=== PATIENT | male | born 1930 | race Caucasian/White ===

== ENCOUNTER 2016-11-19 07:36 | Day surgery (SDC) | payer MEDICARE ==
[2016-11-18 17:53] LABS: HEMATOCRIT 40.2 % (40.0-51.0); HEMOGLOBIN 13.8 g/dL (13.6-17.8)
[2016-11-18 18:04] LABS: BUN (BLOOD UREA NITROGEN) 18 MG/DL (6-23); CALCIUM, SERUM 8.8 MG/DL (8.5-10.4); CHLORIDE, SERUM 106 MMOL/L (96-112); CREATININE 1.49 MG/DL (0.70-1.30); GFR AFRICAN AMERICAN 49 ML/MIN (>=60); GFR NON AFRICAN AMERICAN 42 ML/MIN (>=60); POTASSIUM, SERUM 3.8 MMOL/L (3.5-5.3); SODIUM, SERUM 141 MMOL/L (135-148)
[2016-11-18 18:05] LABS: CO2 (CARBON DIOXIDE) 24 MMOL/L (24-34); GLUCOSE, SERUM 211 MG/DL (60-99)
--- NOTE | ~2016-11-19 | OP ---
Record Of Operation [facility] [address] [place]. [address] NAME: ELENO RAMIREZ RELL : 32 STATUS : [facility]#: [id number] AGE: 86 ADM/REG DATE : 11/19/16 MR#: [id number] REPORT SERV DATE: 11/27/16 DICTATED BY: Rl CHAN DATE: 11/27/16 REPORT STATUS : Draft TRANSCRIBED BY: GEN DATE: 11/27/16 DATE OF PROCEDURE: 11/19/2016 PREOPERATIVE DIAGNOSES: 1. Basal cell carcinoma of the left lower nasal sidewall. 2. Defect of the left lower nasal sidewall secondary to Mohs micrographic surgical excision of basal cell carcinoma. 3. Lesion of the left upper nasal sidewall, uncertain behavior, rule out atypia. 4. Lesion of the left mid nasal sidewall, uncertain behavior, rule out atypia. POSTOPERATIVE DIAGNOSES: 1. Basal cell carcinoma of the left lower nasal sidewall. 2. Defect of the left lower nasal sidewall secondary to Mohs micrographic surgical excision of basal cell carcinoma. 3. Lesion, left upper nasal sidewall, seborrheic keratosis by frozen section. 4. Lesion, left mid nasal sidewall, actinic keratosis, by frozen section. PROCEDURE: 1. Surgical excisional preparation of left lower nasal sidewall defect. 2. Reconstruction of left lower nasal sidewall defect with laterally based nasalis muscle myocutaneous banner-type transposition flap and fat-muscle pedicled turndown flap. 3. Shave excisional biopsy of the left upper nasal sidewall lesion with frozen section. 4. Shave excisional biopsy of the left mid nasal sidewall lesion with frozen section. 5. Rotation flap closure of nasal myocutaneous flap donor site (3 cm x 3 cm). FINDINGS: Left upper nasal sidewall crusted lesion, measuring 5 mm (seborrheic keratosis by frozen section); left mid nasal sidewall lesion measured 6 mm x 4 mm, crusted (frozen section showed actinic keratosis); the Mohs defect of the left lower nasal sidewall measured 1.7 cm x 1.7 cm with a portion of the defect touching the alar crease laterally. INDICATIONS: This 86-year-old gentleman had a biopsy-proven basal cell carcinoma removed by Mohs micrographic surgical technique. This resulted in a large defect. We had initially intended to allow this to heal by secondary intention because I anticipated this to be a smaller defect. This required a much bigger resection to gain free margins. We advised reconstruction. The pros and cons, alternatives, benefits, risks, limitations, and complications (including, but not limited to, infection, reaction to suture, distortion of the nose, necrosis of the flap, numbness to the nose, recurrence of tumor, anesthesia reactions, imponderables) were discussed at length. He now presents for reconstruction and wishes to proceed. Proper consent obtained. No guarantees expressed. DESCRIPTION OF PROCEDURE: He was taken into the operating room and given general oral endotracheal anesthesia in the supine position. The table was turned. The dressing on his nose was removed and the entire nose and face were prepped with Hibiclens and saline, followed by isopropyl alcohol. None of these solutions got in his eyes. His nostril hairs were trimmed as well, and the nostrils were prepped with the same solutions with sterile Q- tips. Sterile drapes were applied. Record Of Operation [address] [address] NAME: ELENO RAMIREZ RELL : 32 STATUS : [facility]#: [id number] AGE: 86 ADM/REG DATE : 11/19/16 MR#: [id number] REPORT SERV DATE: 11/27/16 DICTATED BY: Rl CHAN DATE: 11/27/16 REPORT STATUS : Draft TRANSCRIBED BY: GEN DATE: 11/27/16 The Mohs defect measured as stated above. There were two other lesions. There was one on the left upper nasal sidewall and one on the mid nasal sidewall, which were suspicious for carcinoma and would be in the area of my flap that I was going to do for reconstruction. Therefore, the lesions were marked out for shave excision. A banner-type myocutaneous flap, pedicled on the lateral aspect of the nasalis muscle was designed. The nose was injected with 1% Xylocaine with 1:100,000 epinephrine and 0.5% Marcaine with 1:200,000 epinephrine. The left upper nasal sidewall and the left mid nasal sidewall lesions were shave excised and sent for frozen section. Frozen sections returned showing these to be benign (the upper left nasal sidewall being a seborrheic keratosis and the mid nasal sidewall lesion on the left was an actinic keratosis). The defect was surgically excisionally prepared by excising beveled edges with a #15C blade, forceps, and scissors. This was to achieve proper edges for proper wound and flap approximation. The myocutaneous flap was incised according to the markings. A small muscular pedicle was maintained laterally. The flap was elevated carefully below the level of the muscle and above the level of the perichondrium and periosteum of the nasal skeleton. The flap was reflected. The donor site was closed by first trying to close primarily, but this was unachievable. Wide flap development was needed bilaterally over the nasal sidewall down to the nasofacial junction on the right and also to the left. These flaps, after being developed, were then rotated on themselves and secured with 4-0, 5-0, and 6-0 Vicryl. The nasalis muscle myocutaneous flap was transferred into the defect and cut to fit and sutured in place with 5-0 Vicryl deep and 6-0 Prolene on the skin. The donor site was treated also with 6-0 Prolene on the skin level. The wound was cleansed with hydrogen peroxide and dried. Mastisol and paper tape were applied in an antitension fashion. Estimated blood loss was 20 mL. He tolerated the procedure well and was escorted to recovery room in good condition after extubation. HOME-GOING INSTRUCTIONS: He has prescriptions for pain, antibiotic, and anti-nausea. He will recheck in the office in one week. He is to keep the tape dry and intact. ARISTIDES/FRANCESL Rl Chan M.D. / [id number] CC: Rl Chan M.D.
[~2016-11-19 07:36] MED LIST: B12250T PO; FISH-EPA1000 MG PO; FOLIC PO; GLUCCHONDR PO; GLUCOTROL5 PO; MAX25 PO; METAMUCIL CAN7 OZ PO; PRILO PO; PRIN10 PO; PROSCAR5 PO; VITE PO; Z300 PO
== END 2016-11-19 16:58 | disposition home or self-care (01) ==
LOC: SDC 07:36
PROVIDERS: Specialist
PROC: 0HB1XZZ Excision of Face Skin, External Approach (ICD-10-PCS; 2016-11-19)
PROC: 0HX1XZZ Transfer Face Skin, External Approach (ICD-10-PCS; 2016-11-19)
PROC: 0HB1XZZ Excision of Face Skin, External Approach (ICD-10-PCS; principal; 2016-11-19 10:15)
DX: M95.0 Acquired deformity of nose (principal); L57.0 Actinic keratosis; L82.1 Other seborrheic keratosis; I10 Essential (primary) hypertension; E78.00 Pure hypercholesterolemia, unspecified; N40.0 Benign prostatic hyperplasia without lower urinary tract symptoms; M19.90 Unspecified osteoarthritis, unspecified site; K21.9 Gastro-esophageal reflux disease without esophagitis; E78.5 Hyperlipidemia, unspecified; F41.9 Anxiety disorder, unspecified; E11.9 Type 2 diabetes mellitus without complications; M10.9 Gout, unspecified; Z88.2 Allergy status to sulfonamides; Z88.5 Allergy status to narcotic agent; Z88.8 Allergy status to other drugs, medicaments and biological substances; Z90.49 Acquired absence of other specified parts of digestive tract
CPT/HCPCS: 80048; 82962; 85014; 85018; 88305; 88331; 93005; A9270-GY; J0690; J2370; J2405; J2710; J3010